=== PATIENT | male | born 1960 | race Caucasian/White ===

== ENCOUNTER 2022-03-18 08:32 | Outpatient (CLI) | payer BC, SELFPAY ==
--- NOTE | 2022-03-18 | EST_ITS ---
Patient Info Name: Rafael Hallman Age: 61 years : 1960 Gender: Male Ht: 71 in Wt: 250 lbs BSA: 2.42 m2 Exam Date: 03/18/2022 9:04 AM Exam Location: [facility] Stress Patient Status: Outpatient Admit Date: 03/18/2022 Staff Ordering Physician: Andrew, Radha Goldberg MD Attending Provider: Andrew, Radha Goldberg MD Exercise Technologist: Yulissa Ford RDCS Nurse: OUMAR AGARWAL NP Exam Type: CA stress test treadmill Study Info Indications R06.00 - Dyspnea, unspecified A treadmill exercise stress test was performed. Summary 1. Normal sinus rhythm - normal ECG. 2. No abnormal ST/T wave changes with exercise. 3. Clinically and electrocardiographically negative exercise stress test at 86% of max age predicted maximum heart. Protocol: Robert Stress ECG Details Stage: REST Duration (min): 1 min : 4 sec Speed (mph): 0.0 Grade (%): 0 HR (bpm): 70 SBP (mmHg): 142 DBP (mmHg): 93 METS: --- Stage: REST Duration (min): 4 min : 18 sec Speed (mph): 0.0 Grade (%): 0 HR (bpm): 71 SBP (mmHg): 142 DBP (mmHg): 93 METS: --- Stage: STAGE 1 Duration (min): 1 min : 0 sec Speed (mph): 1.7 Grade (%): 10 HR (bpm): 95 SBP (mmHg): 142 DBP (mmHg): 93 METS: --- Stage: STAGE 1 Duration (min): 2 min : 0 sec Speed (mph): 1.7 Grade (%): 10 HR (bpm): 102 SBP (mmHg): 142 DBP (mmHg): 93 METS: --- Stage: STAGE 1 Duration (min): 3 min : 0 sec Speed (mph): 1.7 Grade (%): 10 HR (bpm): 106 SBP (mmHg): 151 DBP (mmHg): 69 METS: --- Stage: STAGE 2 Duration (min): 1 min : 0 sec Speed (mph): 2.5 Grade (%): 12 HR (bpm): 115 SBP (mmHg): 151 DBP (mmHg): 69 METS: --- Stage: STAGE 2 Duration (min): 2 min : 0 sec Speed (mph): 2.5 Grade (%): 12 HR (bpm): 123 SBP (mmHg): 150 DBP (mmHg): 74 METS: --- Stage: STAGE 2 Duration (min): 3 min : 0 sec Speed (mph): 2.5 Grade (%): 12 HR (bpm): 129 SBP (mmHg): 150 DBP (mmHg): 74 METS: --- Stage: STAGE 3 Duration (min): 1 min : 0 sec Speed (mph): 3.4 Grade (%): 14 HR (bpm): 137 SBP (mmHg): 182 DBP (mmHg): 84 METS: --- Stage: STAGE 3 Duration (min): 1 min : 20 sec Speed (mph): 3.4 Grade (%): 14 HR (bpm): 139 SBP (mmHg): 182 DBP (mmHg): 84 METS: --- Stage: RECOVERY Duration (min): 0 min : 39 sec Speed (mph): 0.0 Grade (%): 0 HR (bpm): 131 SBP (mmHg): 182 DBP (mmHg): 84 METS: --- Stage: RECOVERY Duration (min): 1 min : 39 sec Speed (mph): 0.0 Grade (%): 0 HR (bpm): 111 SBP (mmHg): 198 DBP (mmHg): 80 METS: --- Stage: RECOVERY Duration (min): 2 min : 39 sec Speed (mph): 0.0 Grade (%): 0 HR (bpm): 98 SBP (mmHg): 198 DBP (mmHg): 80 METS: ---
--- NOTE | 2022-03-25 13:19 | P.PCNPFT_ITS ---
PFT Procedure Performed PFT Procedure Performed Plethysmography (Lung Vol) Diffusing Cap (DLCO) Flow Vol Loop Spirometry w/o Bronchodil PFT Interpretation DOS: 03/18/2022 REQUESTING: Dr. Radha Brown REASON FOR TESTING: Dyspnea PULMONARY FUNCTION TESTS Results are reliable and reproducible. Spirometry: FEV1 is 74% predicted, 2.77 L, mildly reduced. FVC is 81%, normal, 3.92 L. The FEV1/FVC ratio is normal 71% predicted. No bronchodilator was administered. Lung volumes: Total lung capacity is increased, 143% predicted, 10.22 L consistent with moderate hyperinflation. Residual volume is severely increased, 178% predicted, 6.31 L. This shows severe air trapping. The RV/TLC ratio was i ncreased 62%. Airway resistance is increased 180%. Diffusion: DLCO is 107%, normal. Flow volume loop: There is a non-specific abnormality in the flow volume loop. The inspiratory limb is decreased in size. IMPRESSION: This patient has a mild obstructive ventilatory impairment with moderate hyperinflation and severe air trapping. The diffusion is normal. No bronchodilator was administered. A trial of bronchodilator should be considered. Nydia Sanz MD
== END 2022-03-18 08:33 | disposition home or self-care (01) ==
LOC: ANHCARD 08:34
PROVIDERS: PCP Family Medicine; Visit Provider Family Medicine
DX: R06.00 Dyspnea, unspecified (principal)
CPT/HCPCS: 93017; 94375; 94726; 94729

== ENCOUNTER 2022-04-05 01:41 | Day surgery (SDC) | payer BC, SELFPAY ==
[2022-03-21 10:40] VITALS: BMI 34.7
--- NOTE | 2022-04-04 12:42 | PM.HPGS ---
History of Present Illness History of Present Illness Consent: Risks, benefits, and alternatives have been discussed and questions answered. Patient agrees to proceed with procedure. Chief complaint: neoplasm screening Narrative: Rafael Hallman is a 61 year old male Who was referred for screening colonoscopy. Review of Systems Review of Systems: All systems reviewed & are unremarkable except as noted in HPI and below PMFSH Family History Family History Mother Diabetes mellitus, Onset Age: 85 Family history of coronary artery disease, Onset Age: 85 Social History Social History Smoking packs per day: 1 Smoking cigarettes per day: 20.0 Years smoked: 8 Smoking pack-years: 8.00 Smoking status: Former smoker Smoking end date: 12/01/04 Alcohol intake: never Drinks per week: 10 Substance use type: does not use Living arrangements: with family Spiritual care concerns: No Meds Home Medications and Allergies Home Medications Medication Instructions Recorded Confirmed Type bupropion HCl 300 mg PO DAILY 03/21/22 04/05/22 History lifitegrast [Xiidra] 1 drp OPHTHALMIC (EYE) DAILY 03/21/22 04/05/22 History lithium carbonate 300 mg PO AC 03/21/22 04/05/22 History omeprazole 20 mg PO DAILY 03/21/22 04/05/22 History Allergies Allergy/AdvReac Type Severity Reaction Status Date / Time No Known Allergies Allergy Verified 04/05/22 09:30 Exam Resp: Auscultation: clear to auscultation bilaterally Cardio: Rate: regular rate Rhythm: regular rhythm GI: GI Palp: Yes Soft to palpation and No Tenderness to palpation present (GI) Assessment and Plan Assessment and plan (1) Colon cancer screening: Code(s): Z12.11 - Encounter for screening for malignant neoplasm of colon Status: Acute Assessment and Plan: Colonoscopy with possible biopsy or polypectomy or cautery or injection of substances.
[2022-04-05 09:31] VITALS: BP 131/84; PULSE 67; RESP 18; TEMP 36.3; O2SAT 99
[2022-04-05] MEDS: LACTATED RINGERS 1,000 ML 150 ML IV CONT (09:40)
--- NOTE | 2022-04-05 09:55 | P.PNAN_ITS ---
Anes - Initial Pre Proc Eval Procedure: Operation Date: 04/05/22 10:15 Proposed Procedures p Screening Colonoscopy - Joaquin Rubio MD Date/Time: 04/05/22 09:55 Surgeon: Joaquin Rubio MD Pre Op Diagnosis: neoplasm screening Patient Data Age: 61 Gender: M Height: 1.8 m Weight: 115.6 kg Last Vital Signs Temp 36.3 C L 04/05/22 09:31 Pulse 67 04/05/22 09:31 Resp 18 04/05/22 09:31 BP 131/84 04/05/22 09:31 Pulse Ox 99 04/05/22 09:31 Allergies Allergy/AdvReac Type Severity Reaction Status Date / Time No Known Allergies Allergy Verified 04/05/22 09:30 Home Medications Medication Instructions Recorded Confirmed Type bupropion HCl 300 mg PO DAILY 03/21/22 04/05/22 History lifitegrast [Xiidra] 1 drp OPHTHALMIC (EYE) DAILY 03/21/22 04/05/22 History lithium carbonate 300 mg PO AC 03/21/22 04/05/22 History omeprazole 20 mg PO DAILY 03/21/22 04/05/22 History Patient hx anesthesia problems: none Family hx anesthesia problems: none Results Review: All pre-operative results and documents have been reviewed as part of the pre-operative evaluation. [facility] Past Medical History Medical History Bipolar disorder BEVERLY (obstructive sleep apnea) Family History Family History Mother Diabetes mellitus, Onset Age: 85 Family history of coronary artery disease, Onset Age: 85 Social History Social History Smoking packs per day: 1 Smoking cigarettes per day: 20.0 Years smoked: 8 Smoking pack-years: 8.00 Smoking status: Former smoker Smoking end date: 12/01/04 Alcohol intake: never Drinks per week: 10 Substance use type: does not use Living arrangements: with family Spiritual care concerns: No Anes - Eval Final PreProcedure Day of Procedure 04/05/22 09:55 Patient weight: obese Heart: regular rate and rhythm Lungs: decreased breath sounds Airway: Mallampati scale class II Neurological: alert and oriented ASA classification: III Emergent: no Anesthetic plan: proceed Anesthesia type and monitoring: general GIVS and standard monitoring Results Review: All pre-operative results and documents have been reviewed as part of the pre-operative evaluation. Informed Consent: The patient's anesthetic plan and its attendant risks and benefits were discussed with the patient/family/POA. Questions were solicited and answers provided to the satisfaction of the patient/family/POA.
[2022-04-05 10:45] VITALS: BP 121/80; PULSE 62; RESP 21; O2SAT 100
[2022-04-05 10:55] VITALS: BP 129/88; PULSE 60; RESP 22; O2SAT 100
[2022-04-05 11:04] VITALS: BP 134/88; PULSE 61; RESP 19; O2SAT 100
== END 2022-04-05 11:14 | disposition home or self-care (01) ==
PROVIDERS: PCP Family Medicine; Visit Provider Internal Medicine Gastroenterology
PROC: 0DJD8ZZ Inspection of Lower Intestinal Tract, Via Natural or Artificial Opening Endoscopic (ICD-10-PCS; CPT 45378; principal; 2022-04-05 10:15)
DX: Z12.11 Encounter for screening for malignant neoplasm of colon (principal); D12.3 Benign neoplasm of transverse colon; D12.4 Benign neoplasm of descending colon; Z87.891 Personal history of nicotine dependence; K62.1 Rectal polyp
CPT/HCPCS: 45385; 45380; 45381; 88305; J2704; J7120

== ENCOUNTER 2024-02-10 17:42 | Emergency (ER) | payer BC, SELFPAY ==
--- NOTE | ~2024-02-10 | XR_ITS ---
EXAM: XR finger 1st RT min 2V DATE: 02/10/2024 18:05 HISTORY: SWOLLEN THUMB X 2 MONTHS, NO INJURY . COMPARISON: The bladder. FINDINGS: Normal mineralization. No fracture or dislocation. No lytic or blastic lesion. Mild scatte red arthritic changes, typical of osteoarthritis. No erosion or periosteal change. Uniform calcific d eposition along the anteromedial aspect of the PIP joint. IMPRESSION: Calcific deposition adjacent to the PIP joint of the thumb, may represent acute calcific arthritis, or crystalline deposition disease such as CPPD or HADD. Reviewed, dictated and finalized at location K. IMPRESSION: Calcific deposition adjacent to the PIP joint of the thumb, may rep resent acute calcific arthritis, or crystalline deposition disease such as CPPD or HADD.
[2024-02-10 17:54] VITALS: BP 153/77; PULSE 90; RESP 16; TEMP 36.4; O2SAT 98
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
== END 2024-02-10 18:46 | disposition home or self-care (01) ==
PROVIDERS: Emergency Provider Registered Nurse; PCP Family Medicine
DX: M79.644 Pain in right finger(s) (principal); M79.89 Other specified soft tissue disorders; Z79.899 Other long term (current) drug therapy; Z87.891 Personal history of nicotine dependence
CPT/HCPCS: 73140; 99213; G0463

== ENCOUNTER 2025-05-02 07:27 | Emergency (ER) | payer BC, SELFPAY ==
--- OUTSIDE RECORDS SUMMARY | 2025-05-02 07:28 | XMS_ITS | Clinical Summary ---
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
--- OUTSIDE RECORDS SUMMARY | 2025-05-02 07:28 | XMS_ITS | Clinical Summary ---
Author Organization [facility] Address [address] [address] Phone Care Team Providers Care Reel Assembler Name Role Phone Unavailable Primary Care Provider Unavailabl e Social History Tobacco Use Types Packs/Day Years Used Date Smoking Tobacco: Never Assessed Sex and Gender Information Value Date Recorded Sex Assigned at Not on file Legal Sex Male 8:54 PM CDT Gender Identity Not on file Sexual Orientation Not on file Plan of Treatment Health Maintenance Due Date Last Done Comments Hepatitis C Virus (HCV) Screening 1960 TdaP Immunization 1960 Colonoscopy 2007 Colorectal Cancer Screening 2007 Cologuard 2012 Immunochemical Fecal Occult Blood 2012 Pneumococcal Immunization (5 0+ years) (1 of 1 - PCV) 2012 Zoster Immunization (1 of 2) 2012 PSA Discussion 2017 Influenza Immunization (#1) 2024 SARS-COV-2 Immunization ( - 2023-25 season) 2024 Respiratory Syncytial Virus (RSV) Immunization (Adult) (1 - 1-dose 75+ series) 2037 Hepatitis B Immunization Aged Out No longer eligible based on patient's age to complete this topic Meningococcal Immunization (ACWY) Aged Out No longer eligible based on patient's age to complete this topic Pneumococcal Immunization Combined Aged Out No longer eligible based on patient's age to complete this topic Rotavirus Immunization Aged Out No lo nger eligible based on patient's age to complete this topic Insurance [facility]
--- OUTSIDE RECORDS SUMMARY | 2025-05-02 07:29 | XMS_ITS | Encounter Summary ---
Author Organization [facility] Address 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
--- OUTSIDE RECORDS SUMMARY | 2025-05-02 07:29 | XMS_ITS | Referral Summary ---
Author Organization [facility] [address] Address [address] [place] [address] Care Team Providers Care Member Of Parliament Name Role Phone Radha Morales MD Primary Care Provider + Allergies No known active allergies Medications buPROPion XL (WELLBUTRIN XL) 300 mg 24 hr tablet Take 1 tablet (300 mg total) by mouth daily 10/19/2023 Active sildenafiL (VIAGRA) 100 mg tablet TAKE ONE TABLET BY MOUTH NEEDED (NOT MORE THAN ONCE DAILY) 09/19/2023 Active Active Problems No known active problems Social History Tobacco Use Types Packs/Day Years Used Date Smoking Tobacco: Never Assessed Sex and Gender Information Value Date Recorded Sex Assigned at Not on file Legal Sex Male 2:13 PM 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 TRAINER Gender Identity Not on file Sexual Orientation Not on file Last Filed Vital Signs Vital Sign Reading Time Taken Comments Blood Pressure 114/68 12/12/2023 12:49 PM EDUCATION TRAINER Pulse 69 12/12/2023 12:49 PM EDUCATION TRAINER Temperature 36.8 C (98.3 F) 12/12/2023 12:49 PM EDUCATION TRAINER Respiratory Rate 18 12/12/2023 12:49 PM EDUCATION TRAINER Oxygen Saturation 97% 12/12/2023 12:49 PM EDUCATION TRAINER Inhaled Oxygen Concentration - - Weight 110.7 kg (244 lb) 12/12/2023 12:49 PM EDUCATION TRAINER Height 180.3 cm (5' 11) 12/12/2023 12:49 PM EDUCATION TRAINER Body Mass Index 34.03 12/12/2023 12:49 PM EDUCATION TRAINER Plan of Treatment Not on file Insurance [place] [employer] [place] Care Teams Member Of Parliament Relationship Specialty Start Date End Date Radha Morales MD [address] [place] [address] DR MONTOYA [address] [place] [id number] PCP - General Family Medicine 03/18/22
--- OUTSIDE RECORDS SUMMARY | 2025-05-02 07:29 | XMS_ITS | Clinical Summary ---
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 Gender Identity Not on file Sexual Orientation Not on file Obstetrics History Last Filed Vital Signs Vital Sign Reading Time Taken Comments Blood Pressure 114/68 12/12/2023 12:49 PM ZIPPER SETTER LOCKSTITCH Pulse 69 12/12/2023 12:49 PM ZIPPER SETTER LOCKSTITCH Temperature 36.8 C (98.3 F) 12/12/2023 12:49 PM ZIPPER SETTER LOCKSTITCH Respiratory Rate 18 12/12/2023 12:49 PM ZIPPER SETTER LOCKSTITCH Oxygen Saturation 97% 12/12/2023 12:49 PM ZIPPER SETTER LOCKSTITCH Inhaled Oxygen Concentration - - Weight 110.7 kg (244 lb) 12/12/2023 12:49 PM ZIPPER SETTER LOCKSTITCH Height 180.3 cm (5' 11) 12/12/2023 12:49 PM ZIPPER SETTER LOCKSTITCH Body Mass Index 34.03 12/12/2023 12:49 PM ZIPPER SETTER LOCKSTITCH Plan of Treatment Health Maintenance Due Date Last Done Comments Colon Cancer Screening-Colonoscopy 1960 Depression Screening 1960 Hepatitis C Screening 1960 Prostate Cancer Screening-PSA 1962 Hepatitis B Screening 1980 Regular Well Visit/Exam 18-64 1980 Zoster Vaccine (1 of 2) 2012 Covid-19 Vaccine (3 - 2023-2 5 season) 2024 04/19/2021, 03/29/2021 Influenza Vaccine (Season Ended) 2025 11/19/2022 DTaP/Tdap/Td Vaccine (2 - Td or Tdap) 12/02/2025 12/02/2015 Pneumococcal vaccine <65 Aged Out No longer eligible based on patient's age to complete this topic [place] [employer] [place] [employer] [place] Care Teams Airplane Woodworker Relationship Specialty Start Date End Date Radha Morales MD [address] [address] PCP - General Family Medicine 03/18/22
[2025-05-02 07:30] VITALS: BP 137/81; PULSE 77; RESP 16; TEMP 36.5; O2SAT 99
--- OUTSIDE RECORDS SUMMARY | 2025-05-02 08:50 | XMS_ITS | Encounter Summary ---
Author Organization [facility] Address 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
--- OUTSIDE RECORDS SUMMARY | 2025-05-02 08:50 | XMS_ITS | Clinical Summary ---
Author Organization [facility] [address] Address [address] [place] [address] Care Team Providers Care Tubing Oiler Name Role Phone Radha Morales MD Primary [...] on file Legal Sex Male 2:13 PM CELERY STRIPPER Gender Identity Not on file Sexual Orientation Not on file Obstetrics History Last Filed Vital Signs Vital Sign Reading Time Taken Comments Blood Pressure 114/68 12/12/2023 12:49 PM CELERY STRIPPER Pulse 69 12/12/2023 12:49 PM CELERY STRIPPER Temperature 36.8 C (98.3 F) 12/12/2023 12:49 PM CELERY STRIPPER Respiratory Rate 18 12/12/2023 12:49 PM CELERY STRIPPER Oxygen Saturation 97% 12/12/2023 12:49 PM CELERY STRIPPER Inhaled Oxygen Concentration - - Weight 110.7 kg (244 lb) 12/12/2023 12:49 PM CELERY STRIPPER Height 180.3 cm (5' 11) 12/12/2023 12:49 PM CELERY STRIPPER Body Mass Index 34.03 12/12/2023 12:49 PM CELERY STRIPPER Plan of Treatment Health Maintenance Due Date [...] patient's age to complete this topic [place] Care Teams Tubing Oiler Relationship Specialty Start Date End Date Radha Morales MD [address] [address] PCP - General Family Medicine 03/18/22
--- OUTSIDE RECORDS SUMMARY | 2025-05-02 08:50 | XMS_ITS | Referral Summary ---
Author Organization [facility] [address] Address [address] [place] [address] Care Team Providers Care Section Plotter Operator Name Role Phone Radha Morales MD Primary [...] on file Legal Sex Male 2:13 PM RESIDENT ADVISOR Gender Identity Not on file Sexual Orientation Not on file Last Filed Vital Signs Vital Sign Reading Time Taken Comments Blood Pressure 114/68 12/12/2023 12:49 PM RESIDENT ADVISOR Pulse 69 12/12/2023 12:49 PM RESIDENT ADVISOR Temperature 36.8 C (98.3 F) 12/12/2023 12:49 PM RESIDENT ADVISOR Respiratory Rate 18 12/12/2023 12:49 PM RESIDENT ADVISOR Oxygen Saturation 97% 12/12/2023 12:49 PM RESIDENT ADVISOR Inhaled Oxygen Concentration - - Weight 110.7 kg (244 lb) 12/12/2023 12:49 PM RESIDENT ADVISOR Height 180.3 cm (5' 11) 12/12/2023 12:49 PM RESIDENT ADVISOR Body Mass Index 34.03 12/12/2023 12:49 PM RESIDENT ADVISOR Plan of Treatment Not on file Insurance [place] Care Teams Section Plotter Operator Relationship Specialty Start Date End Date Radha Morales MD [address] [place] [address] DR MONTOYA [address] [place] [id number] PCP - General Family Medicine 03/18/22
--- OUTSIDE RECORDS SUMMARY | 2025-05-02 08:50 | XMS_ITS | Clinical Summary ---
Author Organization [facility] Address [address] [address] Phone Care Team Providers Care Junior Network Administrator Name Role Phone Unavailable Primary Care Provider [...] patient's age to complete this topic Insurance [facility]
--- OUTSIDE RECORDS SUMMARY | 2025-05-02 08:50 | XMS_ITS | Clinical Summary ---
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
[2025-05-02 10:33] LABS: Add Urine Microscopic? YES; Appearance Urine Clear (Clear); Bacteria Urine None Seen /hpf; Bilirubin Urine Negative (Negative); Blood Urine Negative (Negative); Color Urine Yellow (Yellow); Glucose Urine UA Negative (Negative); Ketones Urine Negative (Negative); Leukocyte Esterase Ur Trace LEU/UL (Negative); Nitrate Urine Negative (Negative); Non Pathogenic Casts 0-2; Protein Urine Negative (Negative); RBC Urine 0-2 /hpf (0-2); Specific Grav Ur 1.009 (1.001-1.035); Squamous Epithelial Cell Urine None Seen /hpf (Few); Urobilinogen Urine 0.2 mg/dL (<2.0); WBC Urine 0-5 /hpf (0-3)
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
[2025-05-02 11:16] VITALS: BP 138/83; PULSE 71; RESP 16; O2SAT 98
[2025-05-02 11:28] VITALS: BP 156/96; PULSE 69; RESP 14; O2SAT 99
== END 2025-05-02 11:32 | disposition home or self-care (01) ==
PROVIDERS: Emergency Provider Family Medicine; PCP Family Medicine
DX: S76.212A Strain of adductor muscle, fascia and tendon of left thigh, initial encounter (principal); K21.9 Gastro-esophageal reflux disease without esophagitis; F31.9 Bipolar disorder, unspecified; G47.30 Sleep apnea, unspecified; X50.0XXA Overexertion from strenuous movement or load, initial encounter
CPT/HCPCS: 81001; 99283

== ENCOUNTER 2025-11-02 16:34 | Emergency (ER) | payer BC, SELFPAY ==
[2025-11-02] VITALS (7 sets, daily range): BP systolic 146–156; BP diastolic 87–96; PULSE 73–81; RESP 20–24; TEMP 36.6; O2SAT 95–98
--- NOTE | ~2025-11-02 | CT_ITS ---
CT abdomen pelvis w con INDICATION:LLQ abdominal pain . COMPARISON: None. TECHNIQUE: Axial images of the abdomen and pelvis were obtained following infusion of 100 mL Isovue 300. Dose optimization technique was utilized. FINDINGS: The lung bases are clear. Fatty infiltration of the liver is noted. No intrahepatic mass or ductal dilatation is evident. The gallbladder is unremarkable. The pancreas and spleen are normal in appearance. The adrenal glands are symmetric in size. The kidneys demonstrate symmetric uptake and excretion of contrast. No cystic mass is evident. There is no solid mass. There is no hydronephrosis. Evaluation of the stomach and bowel loops are limited due to lack of oral contrast. There is a large left inguinal hernia containing sigmoid and descending colon. No bowel obstruction. The bladder and rectum are normal. No free intraperitoneal fluid or air is evident. There is no significant retroperitoneal lymphadenopathy. The aorta, visceral vessels and renal arteries demonstrate normal caliber and patency. The lower thoracic and lumbar vertebrae are in normal alignment. IMPRESSION: Large left inguinal hernia containing long segment of sigmoid colon and descending colon. All CT scans at this facility are performed using low dose modulation techniques as appropriate to perform exam including the following: automated exposure control; use of iterative reconstruction technique; adjustment of the mA and/or kV according to patient size (this includes techniques or standardized protocols for targeted exams where dose is matched to indication/reason for exam). Reviewed, dictated and finalized at location S. TOOL MAKER IMPRESSION: Large left inguinal hernia containing long segment of sigmoid colon and descend ing colon. All CT scans at this facility are performed using low dose modulation techniqu es as appropriate to perform exam including the following: automated exposure c ontrol; use of iterative reconstruction technique; adjustment of the mA and/or kV according to patient size (this includes techniques or standardized protocol s for targeted exams where dose is matched to indication/reason for exam).
--- NOTE | ~2025-11-02 | US_ITS ---
US scrotum doppler INDICATION: Scrotal pain and swelling TECHNIQUE: Testicular sonogram utilizing grayscale and color Doppler FINDINGS: The testes are normal in size and appearance. No focal lesions are seen. The right testes measures 4.6 x 2.8 x 2.2 cm centimeters, and the left testis measures 4.3 x 3.1 x 3 cm cm. There is normal vascular flow to both testes. The right and left epididymides appear normal. There are bilateral varicoceles. IMPRESSION: 1. Bilateral varicoceles. Reviewed, dictated and finalized at location I. OL LUNCH MANAGER IMPRESSION: 1. Bilateral varicoceles.
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
--- OUTSIDE RECORDS SUMMARY | 2025-11-02 17:13 | XMS_ITS | Clinical Summary ---
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 Name Role Phone Unavailable Primary Care Provider [...] Virus (HCV) Screening 1962 TdaP Immunization 1962 Cologuard 2007 Colonoscopy 2007 Colorectal Cancer Screening 2007 Immunochemical Fecal Occult Blood 2007 Pneumococcal Immunization (5 0+ years) (1 of 1 - PCV) 2012 Zoster Immunization (1 of 2) 2012 Influenza Immunization (#1) 2025 SARS-COV-2 Immunization (1 - 2023- season) 2025 Respiratory Syncytial Virus (RSV) Immunization (Adult) (1 - 1-dose 75+ series) 2037 Hepatitis B Immunization Aged Out No longer eligible based on patient's age to complete this topic Human Papillomavirus (HPV) Immunization Aged Out No longer eligible b ased on patient's age to complete this topic Meningococcal Immunization (ACWY) Aged Out No longer eligible based on patient's age to complete this topic Rotavirus Immunization Aged Out No lo nger eligible based on patient's age to complete this topic Insurance [facility]
--- OUTSIDE RECORDS SUMMARY | 2025-11-02 17:13 | XMS_ITS | Clinical Summary ---
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 Gender Identity Not on file Sexual Orientation Not on file Last Filed Vital Signs Vital Sign Reading Time Taken Comments Blood Pressure 114/68 12/12/2023 12:49 PM MANDOLIN REPAIRER Pulse 69 12/12/2023 12:49 PM MANDOLIN REPAIRER Temperature 36.8 C (98.3 F) 12/12/2023 12:49 PM MANDOLIN REPAIRER Respiratory Rate 18 12/12/2023 12:49 PM MANDOLIN REPAIRER Oxygen Saturation 97% 12/12/2023 12:49 PM MANDOLIN REPAIRER Inhaled Oxygen Concentration - - Weight 110.7 kg (244 lb) 12/12/2023 12:49 PM MANDOLIN REPAIRER Height 180.3 cm (5' 11) 12/12/2023 12:49 PM MANDOLIN REPAIRER Body Mass Index 34.03 12/12/2023 12:49 PM MANDOLIN REPAIRER Plan of Treatment Health Maintenance Due Date Last Done Comments Colon Cancer Screening-Colonoscopy 1962 Depression Screening 1962 Hepatitis C Screening 1962 Prostate Cancer Screening-PSA 1962 Hepatitis B Screening 1980 Regular Well Visit/Exam 18-64 1980 Zoster Vaccine (1 of 2) 2012 Covid-19 Vaccine (3 - 2024-2 6 season) 2025 04/19/2021, 03/29/2021 Influenza Vaccine (#1) 2025 11/19/2022 DTaP/Tdap/Td Vaccine (2 - Td or Tdap) 12/02/2025 12/02/2015 Pneumococcal vaccine <65 Aged Out No longer eligible based on patient's age to complete this topic Insurance [employer] [place] Member Subscriber Plan / Payer (Ef fective 2013-Present) Name:Rafael Hallman Relation to Subscriber:Self Name:Rafael Hallman Payer ID:[id number] (NAIC) Type:BC OTHER Address: [place] [id number] [employer] [place] Member Subscriber Plan / Payer (Ef fective 2013-Present) Name:Rafael Hallman Relation to Subscriber:Self Name:Rafael Hallman Payer ID:[id number] (NAIC) Type:BC OTHER Address: [place] [id number] Care Teams Entry Level Automotive Technician Relationship Specialty Start Date End Date Radha Morales MD [address] [address] PCP - General Family Medicine 03/18/22
--- OUTSIDE RECORDS SUMMARY | 2025-11-02 17:13 | XMS_ITS | Patient Health Record ---
Author Organization [facility] Address [address] [place] [address] Care Team Providers Care Consulting Analyst Name Role Phone Jojo Reid DO Primary Care Provider Hank Salinas Luan Unavailable [phone] Allergies No Known Allergies Results Component Value Reference Range Flag Notes LITHIUM (613) Reviewed date:07/26/2025 09:03:56 AM Interpretation: Performing Lab:[facility] Alejandro-[id number] Uma Castrejon, CvphfpHJ[address] Jose Elias Bravo MD Notes/Report: NON-FASTING; NON-FASTING; NON-FASTING; NON-FASTING; NON-FAST FASTING:YES FASTING: YES LITHIUM 0.9 0.6-1.2 mmol/L N VITAMIN D,25-OH,TOTAL,IA (17 306) Reviewed date:07/26/2025 09:03:43 AM Interpretation:Abnormal (follow-up needed) Performing Lab:[facility] Alejandro-Cofecp76796 Gerardo Stewart[address] Jose Elias Bravo MD Notes/Report: NON-FASTING; NON-FASTING; NON-FASTING; NON-FASTING; NON-FAST FASTING:YES FASTING: YES VITAMIN D,25-OH,TOTAL,IA 69 30-100 ng/mL N For 25-OH Vitamin D testing on patients on D2-supplementation and patients for whom quantitation of D2 and D3 fractions is required, the QuestAssureD(TM) 25-OH VIT D, (D2,D3), LC/MS/MS is recommended: order code 07988 (patients >2yrs). See Note 1 Note 1 For additional information, please refer to http://education.[employer] Document Management software.[employer]/faq/XRB181 (This link is being provided for informational/ educational purposes only.) Vitamin D Status 25-OH Vitamin D: Deficiency: <20 ng/mL Insufficiency: 20 - 29 ng/mL Optimal: > or = 30 ng/mL TSH W/REFLEX TO FT4 (03002) Reviewed date:07/26/2025 09:03:43 AM Interpretation:Normal Performing Lab:Julisa CORREA-[id number] Ephraim StewartaKS[address] Jose Elias Bravo MD Notes/Report: NON-FASTING; NON-FASTING; NON-FASTING; NON-FASTING; NON-FAST FASTING:YES FASTING: YES TSH W/REFLEX TO FT4 2.22 0.40-4.50 mIU/L N VITAMIN B12/FOLATE, SERUM PA JOHNY (7062) Reviewed date:07/26/2025 09:03:43 AM Interpretation:Normal Performing Lab:Julisa CORREA-Exxtne67623 Ephraim StewartaKS[address] Jose Elias Bravo MD Notes/Report: NON-FASTING; NON-FASTING; NON-FASTING; NON-FASTING; NON-FAST FASTING:YES FASTING: YES VITAMIN B12 048 470-4380 pg/mL N Please Note: Although the reference range for vitamin B12 is 200-1100 pg/mL, it has been reported that between 5 and 10% of patients with values between 200 and 400 pg/mL may experience neuropsychiatric and hematologic abnormalities due to occult B12 deficiency; less than 1% of patients with values above 400 pg/mL will have symptoms. FOLATE, SERUM 12.3 N Reference Range Low: <3.4 Borderline: 3.4-5.4 Normal: >5.4 HEMOGLOBIN A1c (496) Reviewed date:07/26/2025 09:03:43 AM Interpretation:Normal Performing Lab:[facility]01222 Administration Marti Betancur VrtkxasYB[address] Jose Elias Bravo Notes/Report: NON-FASTING; NON-FASTING; NON-FASTING; NON-FASTING; NON-FAST FASTING:YES FASTING: YES HEMOGLOBIN A1c 5.5 <5.7 % of total Hgb N For the purpose of screening for the presence of diabetes: <5.7% Consistent with the absence of diabetes 5.7-6.4% Consistent with increased risk for diabetes (prediabetes) > or =6.5% Consistent with diabetes This assay result is consistent with a decreased risk of diabetes. Currently, no consensus exists regarding use of hemoglobin A1c for diagnosis of diabetes in children. According to [place] Diabetes Association (ADA) guidelines, hemoglobin A1c <7.0% represents optimal control in non- diabetic patients. Different metrics may apply to specific patient populations. Standards of Medical Care in Diabetes(ADA). CBC (INCLUDES DIFF/PLT) (REF L) (77807) Reviewed date:07/26/2025 09:03:43 AM Interpretation:Normal Performing Lab:KS, Penemarie K Murphy-Acimpy48020 Uma Castrejon, FeeitwFX[address] Jose Elias Bravo MD Notes/Report: NON-FASTING; NON-FASTING; NON-FASTING; NON-FASTING; NON-FAST FASTING:YES FASTING: YES WHITE BLOOD CELL COUNT 6.8 3.8-10.8 Thousand/uL N RED BLOOD CELL COUNT 4.60 4.20-5.80 Million/uL N HEMOGLOBIN 14.7 13.2-17.1 g/dL N HEMATOCRIT 45.2 38.5-50.0 % N MCV 98.3 80.0-100.0 fL N MCH 32.0 27.0-33.0 pg N MCHC 32.5 32.0-36.0 g/dL N For adults, a slight decrease in the calculated MCHC value (in the range of 30 to 32 g/dL) is most likely not clinically significant; however, it should be interpreted with caution in correlation with other red cell parameters and the patient's clinical condition. RDW 12.8 11.0-15.0 % N PLATELET COUNT 155 140-400 Thousand/uL N MPV 11.3 7.5-12.5 fL N ABSOLUTE NEUTROPHILS 4706 2757-9838 cells/uL N ABSOLUTE LYMPHOCYTES 8931 637-8690 cells/uL N ABSOLUTE MONOCYTES 503 200-950 cells/uL N ABSOLUTE EOSINOPHILS 224 15-500 cells/uL N ABSOLUTE BASOPHILS 48 0-200 cells/uL N NEUTROPHILS 69.2 N LYMPHOCYTES 19.4 N MONOCYTES 7.4 N EOSINOPHILS 3.3 N BASOPHILS 0.7 N COMPREHENSIVE METABOLIC PANE L (15044) Reviewed date:07/26/2025 09:03:43 AM Interpretation:Abnormal (follow-up needed) Performing Lab:[facility] Alejandro-[id number] Uma Castrejon, OhzvseHU[address] Jose Elias Bravo MD Notes/Report: NON-FASTING; NON-FASTING; NON-FASTING; NON-FASTING; NON-FAST FASTING:YES FASTING: YES GLUCOSE 96 65-99 mg/dL N Fasting reference interval UREA NITROGEN (BUN) 11 7-25 mg/dL N CREATININE 0.77 0.70-1.35 mg/dL N EGFR 101 > OR = 60 mL/min/1.73m2 N BUN/CREATININE RATIO SEE NOTE: 6- (calc) Not Reported: BUN and Creatinine are within reference range. SODIUM 141 135-146 mmol/L N POTASSIUM 4.2 3.5-5.3 mmol/L N CHLORIDE 106 98-110 mmol/L N CARBON DIOXIDE 26 20-32 mmol/L N CALCIUM 8.6 8.6-10.3 mg/dL N PROTEIN, TOTAL 6.6 6.1-8.1 g/dL N ALBUMIN 4.2 3.6-5.1 g/dL N GLOBULIN 2.4 1.9-3.7 g/dL (calc) N ALBUMIN/GLOBULIN RATIO 1.8 1.0-2.5 (calc) N BILIRUBIN, TOTAL 0.6 0.2-1.2 mg/dL N ALKALINE PHOSPHATASE 78 35-144 U/L N AST 97 10-35 U/L H ALT 132 9-46 U/L H LIPID PANEL, STANDARD (7600) Reviewed date:07/26/2025 09:03:43 AM Interpretation:Abnormal (follow-up needed) Performing Lab:[facility] Alejandro-Nwwpjx11935 Uma Castrejon, EnihbfXD[address] Jose Elias Bravo MD Notes/Report: NON-FASTING; NON-FASTING; NON-FASTING; NON-FASTING; NON-FAST FASTING:YES FASTING: YES CHOLESTEROL, TOTAL 173 <200 mg/dL N HDL CHOLESTEROL 31 > OR = 40 mg/dL L TRIGLYCERIDES 178 <150 mg/dL H LDL-CHOLESTEROL 112 H Reference range: <100 Desirable range <100 mg/dL for primary prevention; <70 mg/dL for patients with CHD or diabetic patients with > or = 2 CHD risk factors. LDL-C is now calculated using the Jaydon calculation, which is a validated novel method providing better accuracy than the Friedewald equation in the estimation of LDL-C. Hector MARKS et al. LISS. 2013;310(93): 6292-6931 (http://[employer]/faq/ZFU137) CHOL/HDLC RATIO 5.6 <5.0 (calc) H NON HDL CHOLESTEROL 142 <130 mg/dL (calc) H For patients with diabetes plus 1 major ASCVD risk factor, treating to a non-HDL-C goal of <100 mg/dL (LDL-C of <70 mg/dL) is considered a therapeutic option. Reason For Referral No Information Medications Medication SIG (Take, Route, Frequency, Duration) Notes Start Date End Date Status Sildenafil Citrate 100 MG Tablet TAKE ONE TABLET BY MOUTH NEEDED NOT MORE THAN ONCE A DAY Oral; Duration: 60 Days Active Vitamin D3 1.25 MG (60910 UT) Capsule TAKE ONE CAPSULE BY MOUTH ONCE A WEEK; Duration: 84 Active buPROPion HCl ER (XL) 300 MG Tablet Extended Release 24 Hour 1 tablet every morning Oral Once a day; Duration: 90 days 07/20/2025 Active [place] Carbonate 300 MG Capsule TAKE 2 CAPSULES BY MOUTH TWICE A DAY Oral see sign; Duration: 90 days 07/20/2025 Active Immunizations Vaccine Route Administration Date Status Comme nts Influenza virus vaccine, quadrivalent (IIV4), split virus, 0.25 mL dosage Unknown 09/11/2019 Administered Novel [id number], preservative free Unknown 11/19/2022 Administered Pfizer Biontech Covid-19 Vac cine 2nd dose Unknown 03/28/2021 Administered Pfizer Biontech Covid-19 Vac cine 2nd dose Unknown 04/19/2021 Administered Social History Tobacco Use: Social History Observation Description Date Details (start date - stop date) Former Smoker NA - NA Sex Assigned At : Social History Observation Description Sex Assigned At Male Social History Miscellaneous: Social Info Question Answer Notes Advance Care Planning Are you your own decision-maker Yes Do you have Power of Warehouse Inventory Clerk for Health or Medi zulema? No Tobacco Use: Social Info Question Answer Notes Tobacco Control (Standard) Tobacco use: Former smoker How long has it been since you last smoked? Greater than 10 years Additional Details Category Social Info Options Details Migrated Social History Migrated Social History Alcohol Intake: Occasional 01/28/2024,Tobacco Years: Former smoker 01/25/2021 Section Notes: Occupation: Works At [employer] In [place], Currently On Strike Tobacco use: Does Not Smoke Living situation: Financially Prepared, Bills Are Being Paid Alcohol use: Occasionally Drinks Wine With Problems Problem Type SNOMED Code ICD Code Onset Dates Problem Status W/U Status Risk Notes Problem Mixed hyperlipidemia (682948493) Mixed hyperlipidemia (E78.2) Active confirmed Problem Severe depressed bipolar I disorder without psychotic features (93770331) Bipolar disorder, current episode depressed, severe, without psychotic features (F31.4) Active confirmed Problem Generalized anxiety disorder (10623409) Generalized anxiety disorder (F41.1) Active confirmed Problem Vitamin D deficiency (65138060) Vitamin D deficiency (E55.9) Active confirmed Problem Vitamin deficiency (44270350) Vitamin deficiency (E56.9) Active confirmed Vital Signs Heart Rate 86 /min 07/20/2025 Height-cm 180.29 cm 07/20/2025 Blood pressure diastolic 63 mm Hg 07/20/2025 Weight-kg 114.22 kg 07/20/2025 Height 70.98 in 07/20/2025 Blood pressure systolic 113 mm Hg 07/20/2025 Weight 251.8 lbs 07/20/2025 BMI 35.13 kg/m2 07/20/2025 Encounters Encounter Location Date Provider Diagnosis [facility] [address] [address] 01/26/2025 Luan Salinas Bipolar disorder, current episode depressed, severe, without psychotic features F31.4 ; Generalized anxiety disorder F41.1 ; Vitamin D deficiency E55.9 ; Mixed hyperlipidemia E78.2 and Vitamin deficiency E56.9 [facility] [address] [address] 07/20/2025 Luan Rita Bipolar disorder, current episode depressed, severe, without psychotic features F31.4 ; Generalized anxiety disorder F41.1 ; Vitamin D deficiency E55.9 and Mixed hyperlipidemia E78.2 [facility] [address] [address] 07/26/2025 Luanclara Atwoodam Assessments Encounter Date Diagnosis (ICD Code) Assessment Notes Treatment Notes Treatment Clinical Notes Section Notes 01/26/2025 Bipolar disorder, current episode depressed, severe, without psychotic features (ICD-10 - F31.4) 01/26/2025 Generalized anxiety disorder (ICD-10 - F41.1) 01/26/2025 Vitamin D deficiency (ICD-10 - E55.9) 07/20/2025 Bipolar disorder, current episode depressed, severe, without psychotic features (ICD-10 - F31.4) Mood has been stable for the past six months. No complaints of major depression, manic episodes, or anxiety. [place] therapy is ongoing for mood stabilization. Patient is proactive about completing blood work before insurance lapses. - Continue lithium therapy. - Order lithium level to monitor therapy. - Order CBC, CMP, thyroid test, vitamin B12, hemoglobin A1C, and lipid panel for routine monitoring. - Maintain six-month follow-up appointment. 07/20/2025 Generalized anxiety disorder (ICD-10 - F41.1) 01/26/2025 Mixed hyperlipidemia (ICD-10 - E78.2) 07/20/2025 Vitamin D deficiency (ICD-10 - E55.9) 01/26/2025 Vitamin deficiency (ICD-10 - E56.9) 07/20/2025 Mixed hyperlipidemia (ICD-10 - E78.2) 01/26/2025 Other Bipolar Disorder - Assessment: Patient's bipolar disorder is stable. - Plan: - Continue bupropion XL 300 mg in the morning. - Continue lithium 300 mg, 2 capsules twice a day. - Monitor for any changes in mood or symptoms. Vitamin D Deficiency - Assessment: Patient has vitamin D deficiency. - Plan: - Continue vitamin D supplementation, one capsule every other week. - Encourage patient to maintain a balanced diet and consider spending time outdoors for natural sunlight exposure. Sleep Disturbances - Assessment: Patient reports waking up at night due to financial concerns but does not experience significant depression or anxiety. - Plan: - Encourage patient to practice good sleep hygiene. - Consider stress management techniques such as deep breathing exercises, meditation, or counseling if needed. Coordination of Care - Assessment: Patient is satisfied with new primary care provider, Dr. Reid's care. - Plan: - Send a note to Dr. Reid to share medical records and update her on the patient's current treatment plan. - Encourage patient to maintain regular follow-up appointments with Dr. Reid for overall health management. Laboratory Tests - Assessment: Patient requires routine laboratory tests. - Plan: - Order lithium level, complete blood count (CBC), and comprehensive metabolic panel (CMP) at [facility]. - Instruct patient to fast and go to the lab first thing in the morning for blood draw. - Review results and adjust treatment plan as needed. Plan Of Treatment Pending Test Test Name Order Date LIPID PANEL, STANDARD (7600) 01/26/2025 THYROID PANEL WITH TSH (7444) 01/26/2025 COMPREHENSIVE METABOLIC PANEL (73141) CBC (H/H, RBC, INDICES, WBC, PLT) (1759) 01/26/2025 CBC (INCLUDES DIFF/PLT) (6399) HEMOGLOBIN A1c (496) 01/26/2025 VITAMIN B12/FOLATE, SERUM PANEL (7065) 0 01/26/2025 VITAMIN D,25-OH,TOTAL,IA (59799) 025 Next Appt Details Provider Name:Luan Salinas , 01/18/2026 03:30:00 PM, [address], [place], [address], Insurance Providers Payer Name Payer Address Payer Phone Subscriber Number Group Number Insured Name Patient Relationship to Insured Coverage Start Date Coverage End Date [facility] Ppo [address] [place] [address] [id number] CRISTIAN FOSTER Self - patient is the insured Medical (General) History Medical History History ICD Code Problems: Bipolar affective disorder, cu rrent episode depression Body mass index 30+ - obesity Generalized anxiety disorder Hyperlipidemia Long-term drug therapy Plantar fasciitis Bipolar disorder Surgical History Surgery Date(Month/Year) Appendectomy (49331) Tonsilectomy/adenoids Other
[2025-11-02 18:55] LABS: Alanine Aminotransferase 185 U/L (6-50); Albumin Level 4.7 g/dL (3.5-5.1); Alkaline Phosphatase 86 U/L (38-126); Anion Gap 12 mmol/L (4-12); Aspartate Amino Transferase 112 U/L (17-59); Bilirubin,Total 0.7 mg/dL (0.2-1.3); Blood Urea Nitrogen 14 mg/dL (9-20); Calcium 9.7 mg/dL (8.4-10.2); Carbon Dioxide 21 mmol/L (22-30); Chloride 106 mmol/L (98-107); Estimated CRCL calculation 97 ml/min; Estimated Glomerular Filt Rate > 60; Glucose 85 mg/dL (65-110); Lipase 87 U/L (23-300); Potassium 4.1 mmol/L (3.4-5.0); Sodium 139 mmol/L (137-145); Total Protein 7.7 g/dL (6.3-8.2)
[2025-11-02 19:00] LABS: Hematocrit 42.9 % (42.0-52.0); Hemoglobin 13.8 g/dL (14.0-18.0); Immature Granulocyte Percent A 0.7 % (0-0.5); Lymphocytes Absolute Auto 2.54 K/mm3 (0.9-3.2); Mean Corpuscular HGB Conc 32.2 g/dl (32-36); Mean Corpuscular Hemoglobin 31.9 pg (26-34); Mean Corpuscular Volume 99.3 fl (80-100); Nucleated Red Blood Cells Absolute Auto 0.000 K/mm3 (0.0-0.012); Nucleated Red Blood Cells Perc 0.0 % (0.0-0.2); Platelet Count Result 232 k/mm3 (150-375); Red Blood Count 4.32 M/mm3 (4.6-6.20); White Blood Count 14.4 K/mm3 (4.5-10.0)
[2025-11-02 19:07] LABS: Add Urine Microscopic? YES; Appearance Urine Clear (Clear); Glucose Urine UA Negative (Negative); Leukocyte Esterase Ur Trace LEU/UL (Negative); Nitrate Urine Negative (Negative); Non Pathogenic Casts 0-2; Specific Grav Ur 1.008 (1.001-1.035)
== END 2025-11-02 21:09 | disposition home or self-care (01) ==
PROVIDERS: Emergency Provider Registered Nurse; PCP Family Medicine
DX: K40.90 Unilateral inguinal hernia, without obstruction or gangrene, not specified as recurrent (principal); I86.1 Scrotal varices; K21.9 Gastro-esophageal reflux disease without esophagitis; G47.33 Obstructive sleep apnea (adult) (pediatric); F31.9 Bipolar disorder, unspecified; Z87.891 Personal history of nicotine dependence; Z79.899 Other long term (current) drug therapy
CPT/HCPCS: 36415; 74177; 76870; 80053; 81001; 82077; 83690; 85025; 93976; 99284; Q9967

== ENCOUNTER 2025-11-23 00:48 | Day surgery (SDC) | payer BC, SELFPAY ==
[2025-11-18 14:37] VITALS: BMI 33.8
--- NOTE | 2025-11-18 14:46 | PC.NURSE ---
[facility] has started construction of its new state of the art ER which will open Spring 2026. With this, we anticipate parking may be a challenge for some our surgical patients and families. Parking spaces are limited but are available for all Surgical, obstetrics, and ER patients sharing this lot. If you arrive and find you are having a hard time finding a parking space, please note that we understand the challenges, please drive around the hospital and park near Hospital Entrance 1. When you enter this entrance, you can ask a volunteer to direct or take you back to the surgical waiting area to check in. We appreciate everyone?s understanding of these expected challenges while we build for your future. Report to the Outpatient Waiting Room, entrance under the green pavilion located off [address], at time _0600_ on date _[id number]_. Planned Procedure Time: _0730_.? Time changes happen often and if your time is changed the preop area will call you the afternoon before. - You and your visitor will be asked to self-screen and do not enter if you have any COVID symptoms. Please call surgeon if you need to reschedule. - A mask is optional within the hospital at this time. Patients may have clear liquids (water, carbonated beverages, clear teas, apple juice) until 3 hours prior to surgery with a maximum of 20 ounces. - No food from midnight until time of surgery and no smoking, or chewing tobacco (or any form of nicotine). No chewing gum, candy or mints. Take only the following medications with a SIP of water on the morning of surgery: ___Bupropion, [place], and Flonase DO NOT STOP ANY OF YOUR OTHER PRESCRIPTION MEDICATIONS PRIOR TO SURGERY EXCEPT THE FOLLOWING Hold all vitamins and supplements for 3 days per anesthesiologist. Medications to discontinue per physician Date to take last dose Please no make-up, nail french, hairspray, perfume, deodorant, or body powder the day of surgery.? No jewelry (including any body piercings) or valuables the day of surgery, leave them at home.? Please take a shower or bath the night before, or the morning of, surgery with an antibacterial soap.? Wear comfortable, loose fitting clothing.? - Jewelry must be removed prior to entering the operating room.? Rings and piercings that are not removed may be cut off. - The hospital will not accept responsibility for valuables.? - Please leave all valuables, including medications, at home the day of surgery. If you are going home after surgery, a licensed water truck driver must drive you home.? - NO public transportation without another adult if you receive anesthesia. - We recommend that an adult stay with you for 24 hours following discharge. - We also recommend that you do not drive, make important decision, drink alcoholic beverages, or take any drugs that were not prescribed by your health care provider for at least 24 hours after your discharge time. Follow any additional instructions given to you from your surgeon. Telephone instructions given to __Rafael___and asked if any additional questions and then verbalized understanding. Patient advised to call surgeon office or pre surgery nurse liaison [phone] if any additional questions.
[2025-11-23] VITALS (9 sets, daily range): BP systolic 110–147; BP diastolic 64–87; PULSE 62–77; RESP 12–16; TEMP 36.1–36.8; O2SAT 96–100
--- OUTSIDE RECORDS SUMMARY | 2025-11-23 00:51 | XMS_ITS | Clinical Summary ---
Author Organization [facility] Address [address] [place] [address] Care Team Providers Care Machine Ii Trimmer Name Role Phone Unavailable Primary Care Provider Unavailabl e Immunizations Immunization Administration Dates Next Due (PFIZER)(12 YR UP) COVID-19 VACCINE - EMERGENCY USE AUTHORIZATION, MRNA, [id number](PF) 30 MCG/0.3 ML IM SUSP 04/19/2021,03/29/2021 Social History Tobacco Use Types Packs/Day Years Used Date Smoking Tobacco: Never Assessed Sex and Gender Information Value Date Recorded Sex Assigned at Not on file Legal Sex Male 2:55 AM PRICING INTERN Gender Identity Not on file Sexual Orientation Not on file Plan of Treatment Health Maintenance Due Date Last Done Comments DTAP/TDAP/TD VACCINES (1 - Tdap) 1981 COLORECTAL SCREENING 2007 Colorectal Cancer Screening 2007 FIT-DNA Q 3 years 2007 FIT/FOBT Q 1 year 2007 Flex Sig/CT Colonography Q 5 years 2007 ZOSTER VACCINE (1 of 2) 2012 INFLUENZA VACCINE (#1) 2025 COVID-19 Vaccine (3 - 2024- season) 2025, 03/29/2021 RSV VACCINE (60+ or ) (1 - 1-dose 75+ series) 2037 Insurance BCBS BLUE ACCESS CHOICE [facility] BLUE ACCESS/TRUE BLUE PPO
--- OUTSIDE RECORDS SUMMARY | 2025-11-23 00:51 | XMS_ITS | Patient Health Record ---
Author Organization [facility] [employer] [facility] Address [address] [place] [address] Care Team Providers Care Coupler Name Role Phone Jojo Reid DO Primary Care Provider Hank Salinas Luan Unavailable [phone] Allergies No Known Allergies Results Component Value Reference Range Flag Notes LITHIUM (613) Reviewed date:07/26/2025 09:03:56 AM Interpretation: Performing Lab:[facility] Alejandro-[id number] Uma Castrejon, [id number] Jose Elias Bravo MD Notes/Report: NON-FASTING; NON-FASTING; NON-FASTING; NON-FASTING; NON-FAST FASTING:YES FASTING: YES LITHIUM 0.9 0.6-1.2 mmol/L N VITAMIN D,25-OH,TOTAL,IA (17 306) Reviewed date:07/26/2025 09:03:43 AM Interpretation:Abnormal (follow-up needed) Performing Lab:[facility] Alejandro-[id number] Gerardo Stewart[address] Jose Elias Bravo MD Notes/Report: NON-FASTING; NON-FASTING; NON-FASTING; NON-FASTING; NON-FAST FASTING:YES FASTING: YES VITAMIN D,25-OH,TOTAL,IA 69 30-100 ng/mL N For 25-OH Vitamin D testing on patients on D2-supplementation and patients for whom quantitation of D2 and D3 fractions is required, the QuestAssureD(TM) 25-OH VIT D, (D2,D3), LC/MS/MS is recommended: order code 98097 (patients >2yrs). See Note 1 Note 1 For additional information, please refer to http://education.La Ruche qui dit Oui.Equals6/faq/HCE940 (This link is being provided for informational/ educational purposes only.) Vitamin D Status 25-OH Vitamin D: Deficiency: <20 ng/mL Insufficiency: 20 - 29 ng/mL Optimal: > or = 30 ng/mL TSH W/REFLEX TO FT4 (16039) Reviewed date:07/26/2025 09:03:43 AM Interpretation:Normal Performing Lab:[facility] CORREA-[id number] Ephraim StewartaKS[address] Jose Elias Bravo MD Notes/Report: NON-FASTING; NON-FASTING; NON-FASTING; NON-FASTING; NON-FAST FASTING:YES FASTING: YES TSH W/REFLEX TO FT4 2.22 0.40-4.50 mIU/L N VITAMIN B12/FOLATE, SERUM PA JOHNY (7010) Reviewed date:07/26/2025 09:03:43 AM Interpretation:Normal Performing Lab:[facility] CORREA-[id number] Ephraim StewartaKS[address] Jose Elias Bravo MD Notes/Report: NON-FASTING; NON-FASTING; NON-FASTING; NON-FASTING; NON-FAST FASTING:YES FASTING: YES VITAMIN B12 699 465-1111 pg/mL N Please Note: Although the reference [...] Reviewed date:07/26/2025 09:03:43 AM Interpretation:Normal Performing Lab:[facility] Administration Marti Betancur BryakreGA[address] Jose Elias Bravo Notes/Report: NON-FASTING; NON-FASTING; NON-FASTING; [...] diagnosis of diabetes in children. According to [place] Diabetes Association (ADA) guidelines, hemoglobin A1c <7.0% represents optimal control in non- diabetic patients. Different metrics may apply to specific patient populations. Standards of Medical Care in Diabetes(ADA). CBC (INCLUDES DIFF/PLT) (REF L) (62863) Reviewed date:07/26/2025 09:03:43 AM Interpretation:Normal Performing Lab:[facility], [facility]-[id number] Uma Castrejon, FzlowcIF[address] Jose Elias Bravo MD Notes/Report: NON-FASTING; NON-FASTING; [...] 11.3 7.5-12.5 fL N ABSOLUTE NEUTROPHILS 4706 0289-9127 cells/uL N ABSOLUTE LYMPHOCYTES 1569 153-5049 cells/uL N ABSOLUTE MONOCYTES 503 200-950 cells/uL N ABSOLUTE EOSINOPHILS 224 15-500 cells/uL N ABSOLUTE BASOPHILS 48 0-200 cells/uL N NEUTROPHILS 69.2 N LYMPHOCYTES 19.4 N MONOCYTES 7.4 N EOSINOPHILS 3.3 N BASOPHILS 0.7 N COMPREHENSIVE METABOLIC PANE L (40251) Reviewed date:07/26/2025 09:03:43 AM Interpretation:Abnormal (follow-up needed) Performing Lab:[facility] Alejandro-Usndbd35045 Uma Castrejon, JtujsjAS[address] Jose Elias Bravo MD Notes/Report: NON-FASTING; NON-FASTING; [...] 09:03:43 AM Interpretation:Abnormal (follow-up needed) Performing Lab:[facility] Alejandro-[id number] mUa Castrejon, [id number] Jose Elias Bravo MD Notes/Report: NON-FASTING; NON-FASTING; [...] of LDL-C. Hector MARKS et al. LISS. 2013;310(45): 9774-6500 (http://Jag.ag/faq/IBC485) CHOL/HDLC RATIO 5.6 <5.0 (calc) H NON [...] 60 Days Active Vitamin D3 1.25 MG (61551 UT) Capsule TAKE ONE CAPSULE BY MOUTH ONCE A WEEK; Duration: 84 Active buPROPion HCl ER (XL) 300 MG Tablet Extended Release 24 Hour 1 tablet every morning Oral Once a day; Duration: 90 days 07/20/2025 Active Singer Carbonate 300 MG Capsule TAKE 2 CAPSULES BY MOUTH TWICE A DAY Oral see sign; Duration: 90 days 07/20/2025 Active Immunizations Vaccine Route Administration Date Status Comme nts Influenza virus vaccine, quadrivalent (IIV4), split virus, 0.25 mL dosage Unknown 09/11/2019 Administered Novel [id number], preservative free Unknown 11/19/2022 Administered Pfizer Biontech [...] decision-maker Yes Do you have Power of Cartridge Filler for Health or Medi zulema? No Tobacco Use: Social Info Question Answer Notes Tobacco Control (Standard) Tobacco use: Former smoker How long has it been since you last smoked? Greater than 10 years Additional Details Category Social Info Options Details Migrated Social History Migrated Social History Alcohol Intake: Occasional 01/28/2024,Tobacco Years: Former smoker 01/25/2021 Section Notes: Occupation: Works At [employer] In [place], Currently On Strike Tobacco use: Does Not Smoke Living situation: Financially Prepared, Bills Are Being Paid Alcohol use: Occasionally Drinks Wine With Problems Problem Type SNOMED Code ICD Code Onset Dates Problem Status W/U Status Risk Notes Problem Mixed hyperlipidemia (210454072) Mixed hyperlipidemia (E78.2) Active confirmed Problem Severe depressed bipolar I disorder without psychotic features (60607056) Bipolar disorder, current episode depressed, severe, without psychotic features (F31.4) Active confirmed Problem Generalized anxiety disorder (51384978) Generalized anxiety disorder (F41.1) Active confirmed Problem Vitamin D deficiency (72580429) Vitamin D deficiency (E55.9) Active confirmed Problem Vitamin deficiency (80034561) Vitamin deficiency (E56.9) Active confirmed Vital Signs Heart Rate 86 /min 07/20/2025 Height-cm 180.29 cm 07/20/2025 Blood pressure diastolic 63 mm Hg 07/20/2025 Weight-kg 114.22 kg 07/20/2025 Height 70.98 in 07/20/2025 Blood pressure systolic 113 mm Hg 07/20/2025 Weight 251.8 lbs 07/20/2025 BMI 35.13 kg/m2 07/20/2025 Encounters Encounter Location Date Provider Diagnosis [facility] [address] [address] 01/26/2025 Luan Salinas Bipolar disorder, current episode depressed, severe, without psychotic features F31.4 ; Generalized anxiety disorder F41.1 ; Vitamin D deficiency E55.9 ; Mixed hyperlipidemia E78.2 and Vitamin deficiency E56.9 [facility] [address] [address] 07/20/2025 Luan Rita Bipolar disorder, current episode depressed, severe, without psychotic features F31.4 ; Generalized anxiety disorder F41.1 ; Vitamin D deficiency E55.9 and Mixed hyperlipidemia E78.2 [facility] [employer] [facility] [address] [address] 07/26/2025 Luanclara Atwoodam Assessments Encounter Date Diagnosis [...] of major depression, manic episodes, or anxiety. Singer therapy is ongoing for mood stabilization. Patient [...] (CBC), and comprehensive metabolic panel (CMP) at [facility]. - Instruct patient to fast and go to the lab first thing in the morning for blood draw. - Review results and adjust treatment plan as needed. Plan Of Treatment Pending Test Test Name Order Date LIPID PANEL, STANDARD (7600) 01/26/2025 THYROID PANEL WITH TSH (7444) 01/26/2025 COMPREHENSIVE METABOLIC PANEL (34207) CBC (H/H, RBC, INDICES, WBC, PLT) (1759) 01/26/2025 CBC (INCLUDES DIFF/PLT) (6399) HEMOGLOBIN A1c (496) 01/26/2025 VITAMIN B12/FOLATE, SERUM PANEL (7065) 0 01/26/2025 VITAMIN D,25-OH,TOTAL,IA (50980) 025 Insurance Providers Payer Name Payer Address Payer Phone Subscriber Number Group Number Insured Name Patient Relationship to Insured Coverage Start Date Coverage End Date [employer] P[place] [address] [place] [address] [id number] CRISTIAN FOSTER Self - patient is the insured Medical (General) History Medical History History ICD Code Problems: Bipolar affective disorder, cu rrent episode depression Body mass index 30+ - obesity Generalized anxiety disorder Hyperlipidemia Long-term drug therapy Plantar fasciitis Bipolar disorder Surgical History Surgery Date(Month/Year) Appendectomy (95056) Tonsilectomy/adenoids Other
--- OUTSIDE RECORDS SUMMARY | 2025-11-23 00:51 | XMS_ITS | Clinical Summary ---
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 Gender Identity Not on file Sexual Orientation Not on file Last Filed Vital Signs Vital Sign Reading Time Taken Comments Blood Pressure 114/68 12/12/2023 12:49 PM DRAFTING LAYOUT WORKER Pulse 69 12/12/2023 12:49 PM DRAFTING LAYOUT WORKER Temperature 36.8 C (98.3 F) 12/12/2023 12:49 PM DRAFTING LAYOUT WORKER Respiratory Rate 18 12/12/2023 12:49 PM DRAFTING LAYOUT WORKER Oxygen Saturation 97% 12/12/2023 12:49 PM DRAFTING LAYOUT WORKER Inhaled Oxygen Concentration - - Weight 110.7 kg (244 lb) 12/12/2023 12:49 PM DRAFTING LAYOUT WORKER Height 180.3 cm (5' 11) 12/12/2023 12:49 PM DRAFTING LAYOUT WORKER Body Mass Index 34.03 12/12/2023 12:49 PM DRAFTING LAYOUT WORKER Plan of Treatment Health Maintenance Due Date [...] patient's age to complete this topic Insurance [employer] [place] Member Subscriber Plan / Payer (Ef fective 2013-Present) Name:Rafael Hallman Relation to Subscriber:Self Name:Rafael Hallman Payer ID:[id number] (NAIC) Type:BC OTHER Address: [place] [id number] [employer] [place] Member Subscriber Plan / Payer (Ef fective 2013-Present) Name:Rafael Hallman Relation to Subscriber:Self Name:Rafael Hallman Payer ID:[id number] (NAIC) Type:BC OTHER Address: [place] [phone] Care Teams Doctor Of Pharmacy Relationship Specialty Start Date End Date Radha Morales MD [address] [place] [address] [address] PCP - General Family Medicine 03/18/22
--- OUTSIDE RECORDS SUMMARY | 2025-11-23 00:51 | XMS_ITS | Clinical Summary ---
Author Organization [facility] Address [address] [address] Phone Care Team Providers Care Sheet Metal Duct Installer Apprentice Name Role Phone Unavailable Primary Care Provider [...] patient's age to complete this topic Insurance [facility]
--- OUTSIDE RECORDS SUMMARY | 2025-11-23 00:51 | XMS_ITS | Encounter Summary ---
Author Organization [facility] Address 

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
[2025-11-23] MEDS: ACETAMINOPHEN 500 MG TABLET 1000 MG PO (06:37)
[2025-11-23] MEDS: LACTATED RINGERS 1,000 ML 30 ML IV CONT ×2 (06:42→09:51)
[2025-11-23] MEDS: KETOROLAC 15 MG/ML VIAL (*BKC) IV PUSH ×2 (06:43→09:16)
[2025-11-23] MEDS: SCOPOLAMINE 1 MG PATCH 1 PATCH TRANSDERM (06:50)
[2025-11-23 07:15] LABS: Lithium 1.0 mmol/L (0.6-1.2)
--- NOTE | 2025-11-23 07:16 | SUR.PREOP ---
Addendum entered by Brooke Shepherd RN 11/23/25 07:23: Shawnee level resulted; SOCCER COACH notified of results WNL. Original Note: RN spoke with anesthesia regarding lithium level still pending. Per Dr Francois, okay for patient to go back to surgery without lithium lab results.
--- NOTE | 2025-11-23 07:17 | WPDHPUPDATE1 ---
History and Physical Update Update Date/Time: 11/23/25 07:17 History and Physical has been reviewed, including an updated exam of the patient. There are NO changes in the patient's condition. Risks, benefits, and alternatives have been discussed and questions answered. Patient agrees to proceed with procedure.
[2025-11-23] MEDS: ceFAZolin 2 GM in SODIUM CHLORIDE 0.9% IV 50 ML 100 ML IVPB (07:27)
[2025-11-23] MEDS: LIDO 1%/EPINEPHRINE 1:100,000 50 ML VIAL (08:14)
[2025-11-23] MEDS: oxyCODONE HCL (*CRX) 5 MG TAB IR PO (11:49)
--- NOTE | 2025-11-23 14:31 | W.PM.PROC2 ---
Procedure Note - Detailed Date of Procedure 11/23/25 Pre-op Diagnosis Incarcerated Left Inguinal Hernia Post-op Diagnosis Same Procedure Performed Open incarcerated left inguinal hernia repair with Ultrapro hernia system mesh. Surgeon Ignacio Richard MD Mechanical Intern Savita LEAHY Anesthesia General Indications Patient is a 65-year-old gentleman presented to the office with complaints of enlarging left scrotum. He had a prior right open inguinal hernia repair with mesh by Dr. Rangel several years ago. On examination had an incarcerated left inguinal scrotal hernia. CT scan abdomen pelvis was done showing portions of the patient's sigmoid colon incarcerated within the left scrotal hernia but no evidence of bowel obstruction. He presents now for elective left incarcerated inguinal scrotal hernia repair with mesh via open approach. Findings Patient had a large incarcerated left indirect inguinal hernia with a portion of the sigmoid colon in the hernia sac. The colon was easily reduced once the external ring was incised releasing the constriction on the sigmoid colon. The sigmoid colon appeared to be viable without evidence of any ischemia. The hernia was repaired with a extended piece of Ultrapro hernia system mesh. Description of Procedure After informed consent was obtained patient brought to the operating room was placed supine position and then general endotracheal anesthesia was administered. The abdomen and bilateral groin regions and the scrotum and penis were then prepped in usual sterile fashion. The scrotum and penis were prepped sterilely into the field. Time-out was then performed correctly identifying the patient as well as procedure to be performed. Site marking was verified. He was given perioperative IV antibiotics. I first started by making a oblique incision along and parallel to the direction of the left inguinal ligament. Dissection carried sharply down through the skin with a scalpel and then into the subcutaneous tissues I dissected down through Wanda's fascia to the external oblique aponeurosis utilized electrocautery. The adipose tissue was dissected off of the external oblique aponeurosis electrocautery and then I proceeded to incise the external oblique aponeurosis utilizing a scalpel and then opening and out through the external ring utilizing combination of sharp scissor and electrocautery dissection. Once I had the external ring opened the constriction of the sigmoid colon released and I was equal to dissect out the hernia sac from the scrotum pretty easily with electrocautery. I then isolated the cord structures at the pubic tubercle blunt finger dissection and then encircled the cord structures with a [place] drain. I then identified the vas deferens and testicular vessels. These were then dissected free of the large hernia sac and preserved without injury. I then reduced the sigmoid colon back through into the abdomen through the dilated internal ring. The hernia sac was then also reduced to the preperitoneal space. Cremasteric muscle fibers were then divided electrocautery to reduce the hernia sac completely. The inferior epigastric vessels were then retracted inferiorly and then deep to the inferior epigastric vessels I bluntly dissected out the preperitoneal space utilizing combination is sponge and blunt finger dissection. Once this was done I then chose an extended piece of Ultrapro hernia system mesh for the repair. The underlay portion of mesh was placed through the dilated internal ring into the preperitoneal space deep to the inferior epigastric vessels. It was then spread out widely the cover the home myopectineal orifice. The cylindrical portion of the mesh came out through the dilated internal ring along side the cord structures I then overlay patch was then laid out over the floor of the inguinal canal. A slit was then cut overlay patch to accommodate the cord structures and the edges of the patch were reapproximated around the cord utilizing interrupted 2-0 Vicryl sutures. The overlay patch distally was then secured to the tissues around the pubic tubercle making sure I had at least 2cm overlap of the mesh to the pubic tubercle. Medially the overlay patch was secured to the tissues of the internal oblique muscle fibers and then laterally secured to the shelving edge of the external oblique aponeurosis utilizing interrupted 2-0 Vicryl sutures. The tail of the mesh was then tucked underneath the external oblique aponeurosis proximally. Incision was then irrigated sterile saline solution. Hemostasis was good. I then proceeded to close the external oblique aponeurosis utilizing a running 3-0 Vicryl suture. The external ring was left widely patent to accompany ?postoperative cord swelling. The wound was irrigated once more. Hemostasis was good. I then injected 10cc of 1% lidocaine mixed with 0.5% Marcaine with epinephrine underneath the external oblique aponeurosis. Another 50cc were then injected around the incision in the subcutaneous tissues. The incision was then closed utilizing multiple layers of interrupted and running 3-0 Vicryl sutures in the subcutaneous tissues. The skin edges were then approximated lies in a running subcuticular 4-0 Monocryl suture. The incision was then cleaned the skin glue was applied. The patient tolerated the procedure well no complications. All sponges, needles, and instrument counts were correct at the end procedure. EBL was _20__cc. The patient was awakened and taken to recovery in stable and satisfactory condition. Implants Extended piece of Ultra Pro hernia system mesh placed in the left groin. Estimated Blood Loss 20 Drains No Packing No Pathology None sent Complications No immediate complications Condition Stable Disposition PACU [facility] Billing Surgery - Charge Forward: Surgery Billing
== END 2025-11-23 12:25 | disposition home or self-care (01) ==
PROVIDERS: Anesthesiology; PCP Family Medicine; Visit Provider Surgery
PROC: (CPT 49507; principal; 2025-11-23 07:30)
DX: K40.30 Unilateral inguinal hernia, with obstruction, without gangrene, not specified as recurrent (principal); K21.9 Gastro-esophageal reflux disease without esophagitis; F31.9 Bipolar disorder, unspecified; G47.33 Obstructive sleep apnea (adult) (pediatric); Z87.891 Personal history of nicotine dependence
CPT/HCPCS: 49507; 36415; 80178; J0690; A9270; C1781; J1100; J1885; J2003; J2004; J2250; J2405; J2704; J7120